=== PATIENT | female | born 2000 | race Caucasian/White ===

== ENCOUNTER 2023-10-12 23:47 | Emergency (ER) | payer BC ==
[~2023-10-12] VITALS: Ht 160 cm; Wt 58.1 kg
[2023-10-13] VITALS: BP_SYST 125; PULSE 79; RESP 18; TEMP 98; O2SAT 100
[2023-10-13] MEDS ORDERED: CIPR500T5 PO (00:20)
[2023-10-13] MEDS ORDERED: CIPROFLOXACIN HCL 500 MG TABLET ONE (00:22)
[2023-10-13 00:23] VITALS: BP_SYST 125; PULSE 79; RESP 18; TEMP 98; O2SAT 100
[2023-10-13] MEDS ORDERED: CIPROFLOXACIN HCL 500 MG TABLET PO ONE (00:30)
[2023-10-13 00:52] LABS: BILIRUBIN,URINE NEGATIVE (NEGATIVE); BLOOD, URINE 3+ (NEGATIVE); CLARITY/URINE CLEAR (CLEAR); COLOR,URINE YELLOW (YELLOW); GLUCOSE,URINE NEGATIVE (NEGATIVE); KETONES,URINE NEGATIVE (NEGATIVE); LEUKOCYTE ESTERASE ,URINE 1+ (NEGATIVE); NITRITE, URINE NEGATIVE (NEGATIVE); PROTEIN URINE 2+ (NEGATIVE); UROBILINOGEN,URINE 0.2 (0.2-1.0)
[2023-10-13 01:18] LABS: BACTERIA,URINE FEW /HPF (None Seen)
== END 2023-10-13 00:28 | disposition home or self-care (01) ==
LOC: SED 23:47
DX: N39.0 Urinary tract infection, site not specified (principal); R35.0 Frequency of micturition; R39.15 Urgency of urination; R31.9 Hematuria, unspecified; Z79.899 Other long term (current) drug therapy
CPT/HCPCS: 81000; 81001; 81015; 81025; 87086; 99283